=== PATIENT | male | born 2000 | race Caucasian/White ===

== ENCOUNTER 2023-07-30 15:02 | Inpatient (IN) ==
--- NOTE | 2023-07-30 15:07 | ED Triage Note ---
Date of Service July 30, 2023 Provider in Triage Author: Hiram Vela History of Present Illness This patient was briefly evaluated while in triage. An abbreviated physical exam was performed. This patient is a 22-year-old Male who presents to the ED with [facility] police from [facility] for evaluation of suicidal thoughts. Patient admits to continued suicidal thoughts, but does not have a definite plan. Patient denies any recent overdose attempts. Patient denies any prior admissions. Physical Exam CONSTITUTIONAL: Healthy and well nourished. Alert and oriented X 3. HEENT: Normocephalic, atraumatic. RESPIRATORY: Clear to auscultation bilaterally with no wheezing, crackles, rhonchi or stridor. CARDIOVASCULAR: Regular rate and rhythm with no murmurs, rubs or gallops. GASTROINTESTINAL: Bowel sounds present in all quadrants. MUSCULOSKELETAL: Full range of motion of all joints without discomfort. INTEGUMENTARY: No rash or other significant dermatologic conditions noted. HEMATOLOGIC: No ecchymosis or petechiae. PSYCHIATRIC: Positive but flat affect. Patient engages in meaningful conversation, does not appear delusional. NEUROLOGIC: No focal neurologic deficits noted. Initial orders for labs and / or imaging were placed and patient was placed in the waiting area until a bed is available. Please see further documentation for the full ED course. MDM / Impression Impression Impression: Depression, Mood disorder Impression: Depression Qualifiers: Depression Type: unspecified Qualified Code(s): F32.A - Depression, unspecified
--- NOTE | 2023-07-30 15:34 | Emergency Department Note ---
Impression & Plan Depression, Mood disorder ED Provider Note NAME: AURY MO AGE: 22 SEX: M : 02/21/2001 ARRIVES VIA: Walk-In INFORMANT: Patient ED PROVIDER(S): Robinson Sr DO CHIEF COMPLAINT: depression HPI: Patient is a 29-year-old male who presents to the ER for depression. He notes he has been depressed since sophomore year. He got worse recently over spring as his family friend committed suicide. He feels as though he is hopeless and depressed. He denies any plan but does admit wanting to . He denies any headache or change in vision. No chest pain or shortness of breath. No auditory visual hallucinations. He notes he is having trouble getting to class. He is not working. He is not doing schoolwork. ADDITIONAL HISTORY OBTAINED: Per HPI Chronic Medical/Social Conditions Affecting Care: Per HPI PAST MEDICAL HISTORY:See Below PAST SURGICAL HISTORY:See Below FAMILY HISTORY:See Below SOCIAL HISTORY:See Below HOME MEDICATIONS:See Below ALLERGIES:See Below VITALS:See Below PHYSICAL EXAMINATION: GENERAL: Sitting up in bed, alert, well appearing, well nourished, no distress, non-toxic EYE EXAM: normal conjunctiva. PERRL and EOM's grossly intact. OROPHARYNX: no exudate, no erythema, lips, buccal mucosa, and tongue normal and mucous membranes are moist NECK: supple, no nuchal rigidity, no adenopathy, non-tender LUNGS: Clear to auscultation. Normal chest wall mechanics HEART: no murmurs, S1 normal and S2 normal ABDOMEN: abdomen soft, non-tender, normo-active bowel sounds, no masses, no rebound or guarding. UPPER EXTREMITIES: upper extremities are grossly normal. LOWER EXTREMITIES: No pitting edema. NEURO EXAM: Normal sensorium, cranial nerves II-XII grossly intact, normal speech, no gross weakness of arms, no gross weakness of legs. PSYCH: Denies any suicidal or homicidal plan but admits to depression and wanting to and feeling apathetic. MEDICAL DECISION MAKING: Patient is a 22-year-old male who presents the ER hopeless and depressed wants to come in for treatment. He is not going to class and unable to perform work or eat. Does have a history of depression. Labs show no significant leukocytosis or anemia. BMP with LFTs bilirubin and TSH is unremarkable. UA was clean. Alcohol was negative. COVID-negative. Patient has no complaints at this time medically. He was cleared after discussion with our psychiatric tree care foreman and referred to 3 S. He was admitted on a 201. Consults/Care Managements Discussions: Per [facility] Triage Nursing notes reviewed. Limited review of prior medical records performed Vital Signs: reviewed and remarkable for no significant abnormalities Differential diagnosis: Mood disorder, infection, hypoglycemia, electrolyte abnormalities, cardiac sources, intracerebral event, toxicologic, trauma, neurologic, as well as other pathologies. ER treatment provided: See below Diagnostics interpreted by me include EKG and cardiac monitoring as listed below: -ECG: none -Laboratory studies:Interpreted by me as stated above in MDM and shown below. 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 Beliefs That Will Affect Care: None Feels Safe at Home: Yes Gender Identity: Male Assistive Devices: None Allergies Allergies Allergy/AdvReac Type Severity Reaction Status Date / Time No Known Allergies Allergy Verified 07/30/23 18:25 Home Meds Home Medications Medication Instructions Recorded Confirmed dextroamphetamine-amphetamine 10 10 mg PO BID 07/30/23 07/30/23 mg tablet guanfacine 1 mg tablet,extended 1 mg PO DAILY 07/30/23 07/30/23 release 24 hr (Intuniv ER) lisdexamfetamine 40 mg capsule 40 mg 07/30/23 Results & Data (ED) Vital Signs Vital Signs - 24 hr 07/30/23 15:04 Temperature 36.9 C Temperature Source Temporal Artery Scan Pulse Rate 73 Pulse Rhythm Regular Pulse Strength Normal Respiratory Rate 18 Respiratory Effort / Characteristics Non-Labored Respiratory Depth Normal Respiratory Pattern Regular Blood Pressure 144/90 H Blood Pressure Mean 108 Blood Pressure Position Sitting Pulse Oximetry 97 Oxygen Delivery Method Room Air Sepsis Recent Fever Within 48 Hours No Sepsis New/Unexplained Change in Mental Status No Sepsis Action Taken by Nursing No Action Required Laboratory Data 07/30/23 15:40 07/30/23 15:40 Lab Results 07/30/23 Range/Units 15:40 WBC 6.59 (4.8-10.8) K/ul RBC 6.06 (4.70-6.10) M/uL Hgb 17.4 (14.0-18.0) g/dl Hct 49.9 (42.0-52.0) % MCV 82.3 (80.0-100.0) fL MCH 28.7 (25.0-34.0) pg MCHC 34.9 (32.0-36.0) g/dL RDW Std Deviation 36.9 (36.4-46.3) fL RDW Coeff of Ashwin 12.2 (11.5-14.5) % Plt Count 211 (130-400) K/uL MPV 10.3 (9.4-12.4) fL Immature Gran % (Auto) 0.3 % Neut % (Auto) 63.2 % Lymph % (Auto) 25.8 % [place] % (Auto) 9.7 % Eos % (Auto) 0.5 % Baso % (Auto) 0.5 % Neut # (Auto) 4.17 (1.40-6.50) K/uL Lymph # (Auto) 1.70 (1.20-3.40) K/uL [place] # (Auto) 0.64 H (0.11-0.59) K/uL Eos # (Auto) 0.03 (0.00-0.50) K/uL Baso # (Auto) 0.03 (0.00-0.20) K/uL Immature Gran # (Auto) 0.02 (0.01-0.20) K/uL Sodium 139 (136-145) mmol/L Potassium 4.1 (3.5-5.1) mmol/L Chloride 103 (98-107) mmol/L Carbon Dioxide 26 (21-32) mmol/L Anion Gap 10 (3-11) BUN 20 (6-23) mg/dl Creatinine 1.10 (0.6-1.4) mg/dl Est Cr Clr Drug Dosing 103.5 ml/min Est GFR ( Amer) 110.6 ml/min Est GFR (Non-Af Amer) 95.5 ml/min BUN/Creatinine Ratio 18.2 (10-20) Glucose 88 (70-99(Fasting)) mg/dl Calcium 10.2 (8.6-10.3) mg/dl Total Bilirubin 0.7 (0.2-1.0) mg/dl AST 39 (13-39) U/L ALT 99 H (7-52) U/L Alkaline Phosphatase 54 (34-104) U/L Total Protein 8.7 H (6.0-8.3) gm/dl Albumin 5.1 H (3.4-5.0) gm/dl Globulin 3.6 (2.5-4.0) gm/dl Albumin/Globulin Ratio 1.4 (0.9-2) TSH 1.591 (0.300-4.500) uIu/ml Salicylates < 3.0 L (3.0-30) mg/dl Acetaminophen < 3 L (10-30) ug/ml Ethyl Alcohol mg/dL < 10.0 (<10.0) mg/dl Discharge Plan Visit Data Chief Complaint: Mental Health Evaluation Stated Complaint: MHE ED Provider: Robinson Sr Discharge Problem: Depression, Mood disorder Discharge Problem: Depression Qualifiers: Depression Type: unspecified Qualified Code(s): F32.A - Depression, unspecified
[2023-07-30 16:14] LABS: Appearance Urine Clear (Clear); Bilirubin Urine Negative (Negative); Blood Urine Negative (Negative); Color Urine Yellow; Glucose Urine UA Negative (Negative); Ketones Urine Negative (Negative); Leukocyte Esterase Urine Negative (Negative); Nitrite Urine Negative (Negative); Protein Urine Negative (Negative); Specific Gravity Urine 1.024 (1.000-1.030); Urobilinogen Urine Negative (Negative)
[2023-07-30 16:37] LABS: Basophils # (auto) 0.03 K/uL (0.00-0.20); Basophils % (auto) 0.5 %; Eosinophils # (auto) 0.03 K/uL (0.00-0.50); Eosinophils % (auto) 0.5 %; Hematocrit (blood only) 49.9 % (42.0-52.0); Hemoglobin 17.4 g/dl (14.0-18.0); Immature Granulocytes # (auto) 0.02 K/uL (0.01-0.20); Immature Granulocytes % (auto) 0.3 %; Lymphocytes % (auto) 25.8 %; Mean Corpuscular Hemoglobin 28.7 pg (25.0-34.0); Mean Corpuscular Hgb Conc 34.9 g/dL (32.0-36.0); Mean Corpuscular Volume 82.3 fL (80.0-100.0); Mean Platelet Volume 10.3 fL (9.4-12.4); Monocytes # (auto) 0.64 K/uL (0.11-0.59); Monocytes % (auto) 9.7 %; Neutrophils # (auto) 4.17 K/uL (1.40-6.50); Neutrophils % (auto) 63.2 %; Platelet Count 211 K/uL (130-400); RDW Coefficient of Variation 12.2 % (11.5-14.5); RDW Standard Deviation 36.9 fL (36.4-46.3); Red Blood Count 6.06 M/uL (4.70-6.10); White Blood Count 6.59 K/ul (4.8-10.8)
[2023-07-30 16:58] LABS: Albumin Level 5.1 gm/dl (3.4-5.0); Bilirubin,Total 0.7 mg/dl (0.2-1.0); Calcium 10.2 mg/dl (8.6-10.3); Potassium 4.1 mmol/L (3.5-5.1)
[2023-07-30 17:04] LABS: Albumin Globulin Ratio 1.4 (0.9-2); BUN Creatinine Ratio 18.2 (10-20); Creatinine Clr Calc Pharmacy 103.5 ml/min; Est GFR (African American) 110.6 ml/min; Est GFR (Non-African American) 95.5 ml/min; Globulin 3.6 gm/dl (2.5-4.0); Total Protein 8.7 gm/dl (6.0-8.3)
[2023-07-30 17:08] LABS: Amphetamines+Metham, Urine Pos (Neg); Barbiturates, Urine Neg (Neg); Benzodiazepine, Urine Neg (Neg); Cocaine, Urine Neg (Neg); MDMA (Ecstacy), Urine Neg (Neg); Marijuana, Urine Neg (Neg); Methadone, Urine Neg (Neg); Opiate, Urine Neg (Neg); Phencyclidine, Urine Neg (Neg)
[2023-07-30 17:11] LABS: Thyroid Stimulating Hormone 1.591 uIu/ml (0.300-4.500)
[2023-07-30 17:53] LABS: Acetaminophen < 3 ug/ml (10-30); Salicylate < 3.0 mg/dl (3.0-30)
[2023-07-30] MEDS ORDERED: SODIUM CHLORIDE 0.65% NA SOLN 45 ML (OCEAN) PRN (21:34)
[2023-07-30] MEDS ORDERED: hydrOXYzine HCl 25 MG TAB PO PRN (21:34)
[2023-07-30] MEDS ORDERED: MAGNESIUM HYDROXIDE SUSP 30 ML UDC PO PRN (21:34)
[2023-07-30] MEDS ORDERED: ALUMINUM/MAGNESIUM SUSP 30 ML UDC PO PRN (21:34)
[2023-07-30] MEDS ORDERED: BISMUTH SUBSALICYLATE LIQD 236 ML PO PRN (21:34)
[2023-07-30] MEDS ORDERED: ACETAMINOPHEN 325 MG TAB PO PRN (21:34)
--- NOTE | 2023-07-31 13:43 | History & Physical ---
Date of Service July 31, 2023 Impression / Recommendations Impression 22 year old male with past psychiatric history of ADHD who presented with increasing depression due to external stressors. (1) Depression: Depression Type: unspecified Qualified Code(s): F32.A - Depression, unspecified Plan admit to inpatient unit. Participate in all milieu therapy. Suicide Risk Level Suicide Risk Level: Low (q15 min observation checks) Risk Factors Assessment Male: Yes : Yes Do You Have Access To A Gun?: No Protective Factors Assessment Employed: No Psychiatric History Identifying Data AURY MO is a 22-year-old M who currently lives in [facility] dorms with one roommate, has a history of ADHD, and was admitted on 07/30/23 21:01 on a 201 for increasing depression and suicidal ideation. History of Present Illness 22 year old male with past psychiatric history of ADHD who presented to the hospital due to increasing depression and suicidal ideation. At the time of the interview, he denied suicidal or homicidal ideation and showed no signs of psychosis or maurilio. He did admit that he is very stressed due to recently transferring to this campus but it seems primarily that his girlfriend is causing a lot of stress in his life. From what he described, she may have borderline personality disorder (he states that she is cutting herself when she is stressed. He also described many other symptoms that would indicate that condition. He says he feels responsible for her, she tells him that she would be now without him, and she invades his boundaries ...calling him at two am in crisis when he asked her not to call after midnight.) We discussed the fact that this would be very difficult to have someone else base their mental health on him and that he can benefit from learning to handle the situation through therapy. We also discussed the fact that noone can be responsible for another person. We discussed the fact that he will not be receiving any ADHD medications while he is in the inpatient unit. We also discussed the possibility of an anti depressant medication because he did describe that he seems to have a history of low mood, even prior to the stressors of his current relationship. The patient declines medication at this time. He did admit to binge drinking and experimentation with cocaine. We discussed the dangers of this drug use, particularly as he was brought to the ED due to severe alcohol intoxication very soon after he transferred to this campus. Past Psychiatric History Previous Psych History: ADHD Current Psychiatric Diagnosis: MDD, Anxiety Previous Psych Admissions: denies Do You Have Access To A Gun?: No History of Previous Suicide Attempt: No Past Head Trauma/Neuro History Patient receives his ADHD prescriptions from a Pediatric Neurologist at [facility] in [place]. This is an unusual specialist for a patient to see for medications. Allergies Allergy/AdvReac Type Severity Reaction Status Date / Time No Known Allergies Allergy Verified 07/31/23 08:38 Home Medications Medication Instructions Recorded Confirmed Type Unobtainable 05/31/23 05/31/23 History dextroamphetamine-amphetamine 10 10 mg PO BID 07/30/23 07/30/23 History mg tablet guanfacine 1 mg tablet,extended 1 mg PO DAILY 07/30/23 07/30/23 History release 24 hr (Intun[facility] ER) lisdexamfetamine 40 mg capsule 40 mg 07/30/23 History Family History Family History of: Doesn't Know Family Mental Health History Comment: mom and sister Alcohol History Hx of Alcohol Use Over the Past 12 Months: Yes (1x a week, states it was more, but has slowed down.) AUDIT Total Score: 4 Smoking Use Have You Smoked or Used Tobacco Products in the Last 30 Days: Yes tobacco type: cigarettes Smoking Status: Former smoker Smoking packs per day: 0 Substance History Hx of Prescription Med Misuse Over the Past 12 Months: No Hx of Over the Counter Med Misuse Over the Past 12 Months: No Hx of Inhalent Misuse Over the Past 12 Months: No Hx of Organic Substance Use Over the Past 12 Months: No Hx of Illegal Substances/Street Drug Use Over Past 12 Months: No Problems as a Result of Past Substance Use: None Identified Personal History Living Arrangements: Dorm Highest Grade Completed: Some College Highest Grade Completed Comment: [employer] studying [employer], just tra [facility]red from [facility] spring Marital Status: Single Number Of Children: 0 Beliefs That Will Affect Care: None Patient History Social History (System 07/31/23 @ 08:38 by Bing De Leon) Smoking Status: Former smoker Preferred Language: Czech Communication Ability: Effective 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 Beliefs That Will Affect Care: None Feels Safe at Home: Yes Gender Identity: Male Assistive Devices: None Physical Exam Psychiatric: A+Ox3, euthymic affect Orientation: alert, oriented x 3 and cooperative Apperance: appropriately dressed, appropriately groomed and appeared stated age Eye Contact: good eye contact Motor Behavior: steady gait and station and no abnormal motor movements Speech: normal rate/rhythm/volume of speech Affect: + anxious affect Mood: + anxious mood Thought Process: goal directed thought process, linear/logical thought process and clear/coherent thought process Thought Content: reality based without delusions Suicidal Thoughts: denies suicidal thoughts, denies suicidal plan and denies suicidal intent Homicidal Thoughts: denies homicidal thoughts, denies homicidal plan and denies homicidal intent Hallucinations: no auditory hallucinations and no visual hallucinations Cognition: recent memory grossly intact, remote memory grossly intact, attention grossly intact and language grossly intact Estimated Intelligence: + above average estimated intelligence Insight: good insight Judgment: + fair judgement Vital Signs (Past 24 Hours): Last Vital Signs Temp 37.0 C 07/31/23 06:00 Pulse 84 07/31/23 06:00 Resp 16 07/31/23 06:00 BP 132/79 07/31/23 06:00 Pulse Ox 100 07/31/23 06:00 O2 Del Method Room Air 07/31/23 06:00 Physical Examination: A physical exam was performed in the ER prior to admission to the unit by Robinson Sr. I accept that physical as correct/medical clearance for the inpatient physical exam. Results & Data ([facility]) Laboratory Results Laboratory Results - last 24 hr 07/30/23 07/30/23 15:40 Unknown WBC 6.59 RBC 6.06 Hgb 17.4 Hct 49.9 MCV 82.3 MCH 28.7 MCHC 34.9 RDW Std Deviation 36.9 RDW Coeff of Ashwin 12.2 Plt Count 211 MPV 10.3 Immature Gran % (Auto) 0.3 Neut % (Auto) 63.2 Lymph % (Auto) 25.8 [place] % (Auto) 9.7 Eos % (Auto) 0.5 Baso % (Auto) 0.5 Neut # (Auto) 4.17 Lymph # (Auto) 1.70 [place] # (Auto) 0.64 H Eos # (Auto) 0.03 Baso # (Auto) 0.03 Immature Gran # (Auto) 0.02 Sodium 139 Potassium 4.1 Chloride 103 Carbon Dioxide 26 Anion Gap 10 BUN 20 Creatinine 1.10 Est Cr Clr Drug Dosing 103.5 Est GFR ( Amer) 110.6 Est GFR (Non-Af Amer) 95.5 BUN/Creatinine Ratio 18.2 Glucose 88 Calcium 10.2 Total Bilirubin 0.7 AST 39 ALT 99 H Alkaline Phosphatase 54 Total Protein 8.7 H Albumin 5.1 H Globulin 3.6 Albumin/Globulin Ratio 1.4 TSH 1.591 Urine Color Yellow Urine Appearance Clear Urine pH 8.0 H Ur Specific [place] 1.024 Urine Protein Negative Urine Glucose (UA) Negative Urine Ketones Negative Urine Blood Negative Urine Nitrite Negative Urine Bilirubin Negative Urine Urobilinogen Negative Ur Leukocyte Esterase Negative Salicylates < 3.0 L Urine Opiates Screen Neg Ur Methadone, Qual Neg Acetaminophen < 3 L Urine Barbiturates Neg Ur Phencyclidine (PCP) Neg U Amphetamines Confirm Pending U Amphetamin/Meth Scrn Pos H U Methamphetamin Confrm Pending MDMA (Ecstasy) Screen Neg U Benzodiazepines Scrn Neg Ur Cocaine Metabolite Neg U Marijuana (THC) Screen Neg Drug Screen Comment Pending Ethyl Alcohol mg/dL < 10.0 SARS-CoV-2, RNA, NAAT NEGATIVE Current Inpatient Medications Current Inpatient Medications: Current Inpatient Medications Acetaminophen (Acetaminophen 325 Mg Tab) 650 mg PO Q4H PRN PRN Reason: Headache or Minor Fever Stop: 08/29/23 21:33 Al Hydrox/Mg Hydrox/Simethicone (Aluminum/Magnesium Susp 30 Ml Udc) 30 ml PO Q4H PRN PRN Reason: GI Upset Stop: 08/29/23 21:33 Bismuth Subsalicylate (Bismuth Subsalicylate Liqd 236 Ml) 15 ml PO PRN PRN PRN Reason: Loose Stool Stop: 08/29/23 21:33 Hydroxyzine HCl (Hydroxyzine Hcl 25 Mg Tab) 50 mg PO HSZ PRN PRN Reason: Insomnia Stop: 08/29/23 21:33 Hydroxyzine HCl (Hydroxyzine Hcl 25 Mg Tab) 25 mg PO Q4H PRN PRN Reason: Anxiety Stop: 08/29/23 21:33 Magnesium Hydroxide (Magnesium Hydroxide Susp 30 Ml Udc) 30 ml PO DAILY PRN PRN Reason: Constipation Stop: 08/29/23 21:33 Sodium Chloride (Sodium Chloride 0.65% Na Soln 45 Ml ([place])) 1 - 2 sprays NA PRN PRN PRN Reason: Nasal Dryness/Congestion Stop: 08/29/23 21:33
--- NOTE | 2023-08-01 13:50 | Psychiatric Progress Note ---
Date of Service August 01, 2023 Impression / Recommendations Impression 22 year old male with past psychiatric history of ADHD who presented with increasing depression due to external stressors. (1) Depression: Patient has agreed to try a SSRI so 20 mg Prozac was ordered. We discussed the fact that these medications have to be taken every day and it will take some time to notice efficacy. We also discussed the fact that he might need an increase of the dosage after several weeks if he is not feeling efficacy. Plan 08/01/23 Patient has agreed to start Prozac 20 mg daily for his symptoms of depression and anxiety. admit to inpatient unit. Participate in all milieu therapy. Suicide Risk Level Suicide Risk Level: Low (q15 min observation checks) Risk Factors Assessment Male: Yes : Yes Do You Have Access To A Gun?: No Protective Factors Assessment Employed: No Interval History Chief Complaint "I have a lot to think about". Review of Systems Sleep Information Total Hours of Sleep: 6 Meal Information Percent Meal Consumed - Breakfast: 100 Percent Meal Consumed - Lunch: 100 Percent Meal Consumed - Dinner: 95 Subjective Subjective Patient was seen & assessed and interval progress reviewed with treatment team, nursing and social work. He has been participating in groups and therapy and says he is pleased with how much this has helped. He says that he is willing to try an antidepressant now so 20 mg of Prozac was ordered. We discussed at length the way that SSRIs function. We discussed that he might be ready for discharge tomorrow but I explained to him that it will be another psychiatrist who will be taking over his care tomorrow. He knows that a plan to continue his therapy as an outpatient is important because continuing to function in the real world is the goal. Physical Exam Psychiatric A+Ox3, euthymic affect Orientation: alert, oriented x 3 and cooperative Apperance: appropriately dressed, appropriately groomed and appeared stated age Eye Contact: good eye contact Motor Behavior: steady gait and station and no abnormal motor movements Speech: normal rate/rhythm/volume of speech Affect: euthymic affect Mood: + anxious mood Thought Process: goal directed thought process, linear/logical thought process and clear/coherent thought process Thought Content: reality based without delusions Suicidal Thoughts: denies suicidal thoughts, denies suicidal plan and denies suicidal intent Homicidal Thoughts: denies homicidal thoughts, denies homicidal plan and denies homicidal intent Hallucinations: no auditory hallucinations and no visual hallucinations Cognition: recent memory grossly intact, remote memory grossly intact, attention grossly intact and language grossly intact Estimated Intelligence: + above average estimated intelligence Insight: good insight Judgment: + fair judgement Vital Signs (Past 24 Hours) Last Vital Signs Temp 36.6 C 08/01/23 06:27 Pulse 60 08/01/23 06:27 Resp 16 08/01/23 06:27 BP 100/64 08/01/23 06:27 Pulse Ox 100 07/31/23 06:00 O2 Del Method Room Air 07/31/23 06:00 A physical exam was performed in the ER prior to admission to the unit by Robinson Sr. I accept that physical as correct/medical clearance for the inpatient physical exam. Results & Data ([facility]) Current Inpatient Medications Current Inpatient Medications: Current Inpatient Medications Acetaminophen (Acetaminophen 325 Mg Tab) 650 mg PO Q4H PRN PRN Reason: Headache or Minor Fever Stop: 08/29/23 21:33 Al Hydrox/Mg Hydrox/Simethicone (Aluminum/Magnesium Susp 30 Ml Udc) 30 ml PO Q4H PRN PRN Reason: GI Upset Stop: 08/29/23 21:33 Bismuth Subsalicylate (Bismuth Subsalicylate Liqd 236 Ml) 15 ml PO PRN PRN PRN Reason: Loose Stool Stop: 08/29/23 21:33 Fluoxetine HCl (Fluoxetine Hcl 20 Mg Cap) 20 mg PO NOW ONE Stop: 08/01/23 14:01 Hydroxyzine HCl (Hydroxyzine Hcl 25 Mg Tab) 50 mg PO HSZ PRN PRN Reason: Insomnia Stop: 08/29/23 21:33 Hydroxyzine HCl (Hydroxyzine Hcl 25 Mg Tab) 25 mg PO Q4H PRN PRN Reason: Anxiety Stop: 08/29/23 21:33 Magnesium Hydroxide (Magnesium Hydroxide Susp 30 Ml Udc) 30 ml PO DAILY PRN PRN Reason: Constipation Stop: 08/29/23 21:33 Sodium Chloride (Sodium Chloride 0.65% Na Soln 45 Ml ([place])) 1 - 2 sprays NA PRN PRN PRN Reason: Nasal Dryness/Congestion Stop: 08/29/23 21:33 Mental Health & Subst Abuse Tx Therapist Name of Therapist: Has had "several" in the past, no current therapist Grinding And Polishing Laborer Name of Grinding And Polishing Laborer: N/A Post Discharge Appointments Primary Care Physician Name Of Family Doctor/PCP: [facility] Primary Care Provider Appointment Comment: Please follow up with PCP as needed. Contact Information Discharge Discharge Address: [address] [place] [address] (1) Depression Depression Type: unspecified Qualified Code(s): F32.A - Depression, unspecified
[2023-08-01] MEDS: FLUoxetine HCL 20 MG CAP PO ONE (14:01)
[2023-08-02] MEDS: FLUoxetine HCL 20 MG CAP PO SCH (09:24)
--- NOTE | 2023-08-02 12:14 | Psychiatric Progress Note ---
Date of Service August 02, 2023 Impression / Recommendations Impression 22 year old male with past psychiatric history of ADHD who presented with increasing depression due to external stressors. 08/02/2023: improving in that starting to conceptualize limit setting with girlfriend, agreed to SSRI trial. Overall, I spent a total of 40 minutes with this case, including review of chart, direct evaluation of the patient, counseling the patient, coordination with nursing, and documentation. (1) Depression: Plan 08/02/23: Risks/benefits/alternatives reviewed re: antidepressants for the treatment of depression and/or anxiety. Discussion included but was not limited to FDA warnings re: suicidality in adolescents and young adults. The patient agreed to continue trial. Discussed onset of action and length of treatment. He is agreeing to remain hospitalized pending a family meeting and finalizing safety planning. Reconfirmed no hx of manic symptoms. as per Dr. Bartlett below: 08/01/23 Patient has agreed to start Prozac 20 mg daily for his symptoms of depression and anxiety. 07/31/23 admit to inpatient unit. Participate in all milieu therapy. Suicide Risk Level Suicide Risk Level: Low (q15 min observation checks) Risk Factors Assessment Male: Yes : Yes Do You Have Access To A Gun?: No Protective Factors Assessment Employed: No Interval History Identifying Information AURY MO is a 22-year-old M who currently lives in [facility] dorms with one roommate, has a history of ADHD, and was admitted on 07/30/23 21:01 on a 201 for increasing depression and suicidal ideation. Chief Complaint ambivalence about notifying parents of his hospitalization Review of Systems Sleep Information Total Hours of Sleep: 7 Meal Information Percent Meal Consumed - Breakfast: 100 Percent Meal Consumed - Lunch: 100 Percent Meal Consumed - Dinner: 100 Subjective Subjective Patient was seen & assessed and interval progress reviewed with nursing and social work. Patient yawned frequently, said he was up more frequently overnight. Reviewed that he did get a dose of Prozac in the afternoon but denies activation and denies it was attributable to medication. Cooperative with unit routines but misses having a same age peer. Physical Exam Psychiatric Orientation: alert and cooperative Apperance: appropriately dressed, appropriately groomed and appeared stated age Eye Contact: good eye contact Motor Behavior: steady gait and station and no abnormal motor movements Speech: normal rate/rhythm/volume of speech Affect: + blunted affect Mood: + depressed mood Thought Process: goal directed thought process Thought Content: reality based without delusions Suicidal Thoughts: denies suicidal thoughts Homicidal Thoughts: denies homicidal thoughts Hallucinations: no auditory hallucinations and no visual hallucinations Cognition: attention grossly intact and language grossly intact Estimated Intelligence: consistent with education level Vital Signs (Past 24 Hours) Last Vital Signs Temp 36.4 C L 08/02/23 10:17 Pulse 71 08/02/23 10:17 Resp 18 08/02/23 10:17 BP 107/66 08/02/23 10:17 Pulse Ox 97 08/02/23 10:17 O2 Del Method Room Air 08/02/23 06:55 Results & Data ([facility]) Current Inpatient Medications Current Inpatient Medications: Current Inpatient Medications Acetaminophen (Acetaminophen 325 Mg Tab) 650 mg PO Q4H PRN PRN Reason: Headache or Minor Fever Stop: 08/29/23 21:33 Al Hydrox/Mg Hydrox/Simethicone (Aluminum/Magnesium Susp 30 Ml Udc) 30 ml PO Q4H PRN PRN Reason: GI Upset Stop: 08/29/23 21:33 Bismuth Subsalicylate (Bismuth Subsalicylate Liqd 236 Ml) 15 ml PO PRN PRN PRN Reason: Loose Stool Stop: 08/29/23 21:33 Fluoxetine HCl (Fluoxetine Hcl 20 Mg Cap) 20 mg PO QAM SHANIQUA Stop: 09/01/23 08:59 Last Admin: 08/02/23 09:24 Dose: 20 mg Hydroxyzine HCl (Hydroxyzine Hcl 25 Mg Tab) 50 mg PO HSZ PRN PRN Reason: Insomnia Stop: 08/29/23 21:33 Hydroxyzine HCl (Hydroxyzine Hcl 25 Mg Tab) 25 mg PO Q4H PRN PRN Reason: Anxiety Stop: 08/29/23 21:33 Magnesium Hydroxide (Magnesium Hydroxide Susp 30 Ml Udc) 30 ml PO DAILY PRN PRN Reason: Constipation Stop: 08/29/23 21:33 Sodium Chloride (Sodium Chloride 0.65% Na Soln 45 Ml ([place])) 1 - 2 sprays NA PRN PRN PRN Reason: Nasal Dryness/Congestion Stop: 08/29/23 21:33 Mental Health & Subst Abuse Tx Therapist Name of Therapist: Has had "several" in the past, no current therapist Apprentice Carpenter Name of Apprentice Carpenter: N/A Post Discharge Appointments Primary Care Physician Name Of Family Doctor/PCP: [facility] Primary Care Provider Appointment Comment: Please follow up with PCP as needed. Contact Information Discharge Discharge Address: [address] [place] [address] (1) Depression Depression Type: unspecified Qualified Code(s): F32.A - Depression, unspecified
[2023-08-02] MEDS: hydrOXYzine HCl 25 MG TAB PO PRN (23:43)
[2023-08-03 07:32] LABS: Amphetamine Urine, Confirm 1210 ng/mL (<250); Methamphetamine, Ur Confirm NEGATIVE ng/mL (<250)
--- NOTE | 2023-08-03 12:16 | Discharge Summary ---
Date of Service August 03, 2023 History of Present Illness As per Dr. Bartlett: 22 year old male with past psychiatric history of ADHD who presented to the hospital due to increasing depression and suicidal ideation. At the time of the interview, he denied suicidal or homicidal ideation and showed no signs of psychosis or maurilio. He did admit that he is very stressed due to recently transferring to this campus but it seems primarily that his girlfriend is causing a lot of stress in his life. From what he described, she may have borderline personality disorder (he states that she is cutting herself when she is stressed. He also described many other symptoms that would indicate that condition. He says he feels responsible for her, she tells him that she would be now without him, and she invades his boundaries ...calling him at two am in crisis when he asked her not to call after midnight.) We discussed the fact that this would be very difficult to have someone else base their mental health on him and that he can benefit from learning to handle the situation through therapy. We also discussed the fact that noone can be responsible for another person. We discussed the fact that he will not be receiving any ADHD medications while he is in the inpatient unit. We also discussed the possibility of an anti depressant medication because he did describe that he seems to have a history of low mood, even prior to the stressors of his current relationship. The patient declines medication at this time. He did admit to binge drinking and experimentation with cocaine. We discussed the dangers of this drug use, particularly as he was brought to the ED due to severe alcohol in toxication very soon after he transferred to this campus. Physical Exam Psychiatric See admission H&P and DOD assessment. Vital Signs (Past 24 Hours) Last Vital Signs Temp 36.4 C 08/03/23 09:10 Pulse 66 08/03/23 09:10 Resp 16 08/03/23 09:10 BP 112/72 08/03/23 09:10 Pulse Ox 98 08/03/23 09:10 O2 Del Method Room Air 08/03/23 06:00 Principal Diagnosis major depressive disorder Psychiatric Data See daily stay summary. In short, safety was maintained and the patient was cooperative with care. Medication changes included Dr. Bartlett holding ADHD meds and then offering a trial of Prozac and they tolerated this well. They also used Vistaril prn effectively for anxiety/sleep and did request a short supply at discharge for prn use. A family session was held via phone with parents and safety plan was completed prior to discharge. Day of Discharge Assessment Today the patient voices readiness for discharge. They note improvement in mood and deny thoughts to harm self or others. Thoughts remain organized and they are improved from admission. There is no evidence of psychosis. They agree to take mediations as prescribed and keep follow-up appointments. They are stable for discharge to outpatient level of care. Transition of Care Transition Of Care Record: was reviewed with the patient Advance Directives Advance Directives Information Provided: Yes Advance Directives: No Mental Health Advance Directive: No Advance Directives on File: No Living Will: No Power of Cassandra Consultant: No Advance Directives Reason:: Declines as Mental Health Visit. Suicide Risk Level Suicide Risk Level Comments: Suicide risk at discharge is deemed low as the patient is no longer requiring 24-hr monitoring, has a safety plan, and is free of suicidal ideation at discharge. Risk Factors Assessment Male: Yes : Yes Do You Have Access To A Gun?: No Previous Attempt: No Previous Psychiatric Hospitalization: No Protective Factors Assessment Employed: No Supportive Family: Yes Tobacco Cessation at Discharge Tobacco Cessation Medication Prescribed at Discharge: Not Applicable/Non-Smoker Total Time Total Time Spent: Greater Than 30 Minutes (34 min ) Discharge Data Lab Results 07/30/23 07/30/23 15:40 Unknown WBC 6.59 RBC 6.06 Hgb 17.4 Hct 49.9 MCV 82.3 MCH 28.7 MCHC 34.9 RDW Std Deviation 36.9 RDW Coeff of Ashwin 12.2 Plt Count 211 MPV 10.3 Immature Gran % (Auto) 0.3 Neut % (Auto) 63.2 Lymph % (Auto) 25.8 Denton % (Auto) 9.7 Eos % (Auto) 0.5 Baso % (Auto) 0.5 Neut # (Auto) 4.17 Lymph # (Auto) 1.70 [place] # (Auto) 0.64 H Eos # (Auto) 0.03 Baso # (Auto) 0.03 Immature Gran # (Auto) 0.02 Sodium 139 Potassium 4.1 Chloride 103 Carbon Dioxide 26 Anion Gap 10 BUN 20 Creatinine 1.10 Est Cr Clr Drug Dosing 103.5 Est GFR ( Amer) 110.6 Est GFR (Non-Af Amer) 95.5 BUN/Creatinine Ratio 18.2 Glucose 88 Calcium 10.2 Total Bilirubin 0.7 AST 39 ALT 99 H Alkaline Phosphatase 54 Total Protein 8.7 H Albumin 5.1 H Globulin 3.6 Albumin/Globulin Ratio 1.4 TSH 1.591 Urine Color Yellow Urine Appearance Clear Urine pH 8.0 H Ur Specific Freeman 1.024 Urine Protein Negative Urine Glucose (UA) Negative Urine Ketones Negative Urine Blood Negative Urine Nitrite Negative Urine Bilirubin Negative Urine Urobilinogen Negative Ur Leukocyte Esterase Negative Salicylates < 3.0 L Urine Opiates Screen Neg Ur Methadone, Qual Neg Acetaminophen < 3 L Urine Barbiturates Neg Ur Phencyclidine (PCP) Neg U Amphetamines Confirm 1210 H U Amphetamin/Meth Scrn Pos H U Methamphetamin Confrm NEGATIVE MDMA (Ecstasy) Screen Neg U Benzodiazepines Scrn Neg Ur Cocaine Metabolite Neg U Marijuana (THC) Screen Neg Drug Screen Comment SEE NOTE Ethyl Alcohol mg/dL < 10.0 SARS-CoV-2, RNA, NAAT NEGATIVE Hospital Course (1) Depression: Plan 08/02/23: Risks/benefits/alternatives reviewed re: antidepressants for the treatment of depression and/or anxiety. Discussion included but was not limited to FDA warnings re: suicidality in adolescents and young adults. The patient agreed to continue trial. Discussed onset of action and length of treatment. He is agreeing to remain hospitalized pending a family meeting and finalizing safety planning. Reconfirmed no hx of manic symptoms. as per Dr. Bartlett below: 08/01/23 Patient has agreed to start Prozac 20 mg daily for his symptoms of depression and anxiety. 07/31/23 admit to inpatient unit. Participate in all milieu therapy. Mental Health & Subst Abuse Tx Therapist Name of Therapist: [facility] Therapist's Therapy Appointment Comment: Please follow up via email ( ) to schedule. Load Out Supervisor Name of Load Out Supervisor: [facility] Phone Number for Load Out Supervisor: [phone] Case Management Appointment Comment: Please check [facility] email for Zoom link for follow up meeting. Post Discharge Appointments Primary Care Physician Name Of Family Doctor/PCP: [facility] Primary Care Provider Appointment Comment: Please call for an appointment for medication fol low up. Smoking Cessation Counseling Tobacco Cessation Medication Prescribed at Discharge: Not Applicable/Non-Smoker Other #1: Name of Aftercare Appointment: [facility] Phone Number of Aftercare Appointment: [phone] Time of Aftercare Appointment: Please call if you are interested in medication management. Aftercare Appointment Comment: [address] [facility], [facility] [address] Contact Information Discharge Discharge [address]: [address] [place] [id number] Discharge Plan Discharge Items Patient Disposition: Home - Self-Care Reason For Visit: SUICIDAL IDEATION/HOMICIDAL IDEATION Discharge Diagnosis: major depressive disorder Activity: Resume your previous activity Non-emergency contact: Primary Care Provider and Therapist Call non-emergency contact if: you have any medication questions and your symptoms worsen Follow-up/Referrals: PCP,NO [Primary Care Provider] - Diet: Regular Addtl Attending Provider Instructions: SPECIAL CARE INSTRUCTIONS: YOUR ADHD MEDICATIONS WERE HELD DURING YOUR STAY. PLEASE CHECK WITH YOUR OUTPATIENT PRESCRIBER BEFORE RESUMING. 1. Follow through with your scheduled aftercare appointments. If unable to keep an appointment, please call to reschedule. 2. Take your medication only as prescribed. Medication should not be changed or stopped without the approval of your doctor. In the event of worsening symptoms or concerns about side effects, contact your doctor immediately. 3. Utilize new healthy coping skills, anger management skills, and stress management skills learned during your hospitalization. Journal feelings and process them with a support person. Identify stressors or situations that may result in relapse, deterioration or inappropriate behaviors and develop a plan to deal with those issues. 4. If your coping skills are ineffective and you are in crisis, contact your outpatient providers for direction. If unable to reach your providers, please call the [facility] CRISIS LINE AT , go to the [facility] walk-in center at [address] [facility], [address], [place], or go to the closest Emergency Room. 5. Avoid alcohol and un-prescribed drugs. 6. You have been provided with the Mental Health Advance Directives Pamphlet for your review. 7. Your condition is stable for discharge to outpatient level of care, but recovery is an ongoing process. Ifthoughts to harm yourself or others return, follow the safety plan developed during your stay. Planning for a safe return home includes securing weapons. Our treatment team recommends weaponsbe removed from the home until your outpatient provider reassesses your progress. In rare cases where the items themselvescannot be removed, guns and ammunitionshould be secured separatelyand keys stored by a reliable personoutside of the home. If you were admitted on an involuntary commitment, the police or other legal authorities may be involved in this process. AFTERCARE APPOINTMENTS: * Please call your insurance company prior to your scheduled appointment to confirm your aftercare providers are covered. Take your insurance information to your appointments. WHO TO CALL AND WHEN: Medical Emergencies: For questions or emergencies related to your hospital stay, please contact the Inpatient Behavioral Health Unit at [phone]. A behavior clinician is on-call 09/12 for the Behavioral Health Unit for emergencies At any time you feel your situation is an emergency, you may also call 911 immediately. Pending Studies at Discharge: No Stand-Alone Forms: My [facility] [employer], Smoking Cessation Medications and DC Order Prescriptions: New fluoxetine 20 mg Capsule 20 mg PO QAM Qty: 30 0RF hydroxyzine HCl 25 mg Tablet 25 mg PO Q4H PRN (Reason: anxiety) Qty: 14 0RF Rx Instructions: may take an additional tab if hs for insomnia, total daily max 100 mg Discontinued dextroamphetamine-amphetamine 10 mg tablet 10 mg PO BID guanfacine [Intuniv ER] 1 mg tablet extended release 24 hr 1 mg PO DAILY lisdexamfetamine 40 mg capsule 40 mg Discharge Orders: Discharge Order (Routine); Ordered 08/03/23 Ordered By: Deysi Dimas Admission Data Admit Date/Time: 07/30/23 21:01 Attending Provider: Deysi Dimas Admit Provider: Elo Bartlett Primary Care Provider: PCP,NO Other Interventions: Discharge Summary Assessment (RN) Last Done: 08/03/23 09:10 PSY Interdisciplinary Discharge Planning Last Done: 08/03/23 10:55 Coding Level of Care Code 61250 D/C day mgmt > 30 min Diagnoses Depression F32.A Depression Type: unspecified
== END 2023-08-03 13:10 | disposition home or self-care (01) | DRG 881 ==
LOC: EDBD → ED 15:02 → 3S 20:57 → MERGE 21:01 → 3S 21:01 → SUATTDRO 21:01